=== PATIENT | male | born 1945 | race Hispanic/Latino ===

== ENCOUNTER 2018-06-28 06:19 | Day surgery (SDC) | payer MEDICARE ==
[2018-06-24 12:35] VITALS: BP 142/59
[2018-06-24 12:58] LABS: BASOPHILS % (AUTO) 0.8 % (0.0-5.0); EOSINOPHILS % (AUTO) 3.3 % (0.0-8.0); HEMATOCRIT 41.6 % (42-54); LYMPHOCYTES % (AUTO) 20.3 % (21.0-51.0); MEAN CORPUSCULAR HEMOGLOBIN 32.1 pg (27.0-33.0); MEAN CORPUSCULAR HGB CONC 33.9 g/dL (32.0-36.0); MEAN CORPUSCULAR VOLUME 94.6 fL (79-99); MONOCYTES % (AUTO) 9.1 % (3.0-13.0); NEUTROPHILS % (AUTO) 66.5 % (40.0-77.0); PLATELET COUNT (AUTO) 135 K/uL (130-400); RED BLOOD CELL COUNT(AUTO) 4.39 MIL/uL (4.50-6.20); WHITE BLOOD COUNT (AUTO) 7.7 K/uL (4.8-10.8)
[2018-06-24 13:01] LABS: APPEARANCE,URINE Clear (CLEAR); BILIRUBIN,URINE Negative (NEGATIVE); COLOR,URINE Yellow (YELLOW); GLUCOSE, URINE (UA) Negative (NEGATIVE); KETONES,URINE Negative (NEGATIVE); LEUKOCYTE ESTERASE ,URINE Negative (NEGATIVE); NITRATE,URINE Negative (NEGATIVE); OCCULT BLOOD,URINE Negative (NEGATIVE); PH,URINE 8.5 (5.0-8.0); PROTEIN,URINE Negative (NEGATIVE)
[2018-06-24 13:11] LABS: CREATININE 0.9 mg/dL (0.5-1.5)
[~2018-06-28] VITALS: Ht 172.7 cm; Wt 70.9 kg
[2018-06-28] VITALS (13 sets, daily range): BP systolic 114–138; BP diastolic 47–68
[~2018-06-28 06:19] MED LIST: CHOL100018 PO; FOLI1TAB15 PO; HYDR-85 PO; IRON PO; MVI PO; VITAMIN B12 PO; [UNRECOGNIZED DRUG - OTHER] PO
[2018-06-28] MEDS ORDERED: LACTATED RINGERS 1000ML 1,000 ML IV ONE (07:27)
[2018-06-28] MEDS ORDERED: PROPOFOL 10 MG/ML 20ML VIAL IV ONE (07:40)
[2018-06-28] MEDS ORDERED: ONDANSETRON HCL 4 MG/2 ML VIAL ONE (07:40)
[2018-06-28] MEDS ORDERED: FENTANYL CITRATE PF 50 MCG/1 ML 2ML VIAL ONE (07:40)
[2018-06-28] MEDS ORDERED: LIDOCAINE PF 2% 5ML ABBOJECT ONE (07:40)
[2018-06-28] MEDS ORDERED: DEXAMETHASONE SOD PHOSPHATE 10MG/ML 1ML VIAL ONE (07:40)
[2018-06-28] MEDS ORDERED: MIDAZOLAM HCL 1 MG/ML 2ML VIAL ONE (07:41)
[2018-06-28] MEDS ORDERED: ROPIVACAINE 0.5% 5MG/ML 30ML IJ ONE (08:16)
[2018-06-28] MEDS ORDERED: EPHEDRINE SULFATE 50 MG/ML AMPULE ONE (08:41)
[2018-06-28] MEDS ORDERED: MEPERIDINE-PF 25 MG/ML SYG ONE (10:19)
== END 2018-06-28 11:35 | disposition home or self-care (01) ==
LOC: DAH 06:19
PROVIDERS: ATTEND Surgery
DX: K40.90 Unilateral inguinal hernia, without obstruction or gangrene, not specified as recurrent (principal); D64.9 Anemia, unspecified; G89.29 Other chronic pain; M51.36 Other intervertebral disc degeneration, lumbar region; E78.5 Hyperlipidemia, unspecified; M19.90 Unspecified osteoarthritis, unspecified site; D69.6 Thrombocytopenia, unspecified; Z96.651 Presence of right artificial knee joint; Z90.49 Acquired absence of other specified parts of digestive tract; Z98.890 Other specified postprocedural states; Z79.899 Other long term (current) drug therapy; Z82.49 Family history of ischemic heart disease and other diseases of the circulatory system
CPT/HCPCS: 36415; 49505; 80048; 81003; 85025; 93005; A4450; A4452; C1729; C1781; J1100; J2001; J2175; J2250; J2405; J2704; J2795; J3490; J7030; J7120; J3010

== ENCOUNTER → 2021-02-27 | Outpatient (CLI) | payer MEDICARE | END | disposition home or self-care (01) | LOC: RAH 02-24 15:07 | PROVIDERS: ATTEND Family Medicine | DX: M21.752 Unequal limb length (acquired), left femur (principal) | CPT/HCPCS: 73700 ==

== ENCOUNTER 2023-10-27 07:41 | Day surgery (SDC) | payer OTHER, MEDICARE ==
[2023-10-26 12:17] LABS: BASOPHILS # (AUTO) 0.07 K/uL (0.00-0.20); BASOPHILS % (AUTO) 0.9 % (0.0-5.0); EOSINOPHILS # (AUTO) 0.19 K/uL (0.00-0.70); EOSINOPHILS % (AUTO) 2.3 % (0.0-8.0); HEMATOCRIT 41.7 % (42-54); IMMATURE GRANULOCYTE ABSOLUTE 0.06 K/uL (0-1); LYMPHOCYTES # (AUTO) 1.3 K/uL (1.0-4.8); LYMPHOCYTES % (AUTO) 15.6 % (21.0-51.0); MEAN CORPUSCULAR HEMOGLOBIN 31.9 pg (27.0-33.0); MEAN CORPUSCULAR HGB CONC 32.9 g/dL (32.0-36.0); MEAN CORPUSCULAR VOLUME 97.2 fL (79-99); MONOCYTES # (AUTO) 0.9 K/uL (0.1-1.0); NEUTROPHILS # (AUTO) 5.7 K/uL (1.8-7.7); NEUTROPHILS % (AUTO) 69.5 % (40.0-77.0); PLATELET COUNT (AUTO) 136 K/uL (130-400); RED BLOOD CELL COUNT(AUTO) 4.29 MIL/uL (4.50-6.20); RED CELL DISTRIBUTION WIDTH 12.8 % (11.0-15.5); WHITE BLOOD COUNT (AUTO) 8.2 K/uL (4.8-10.8)
[2023-10-26 12:48] LABS: CREATININE 0.9 mg/dL (0.5-1.5); POTASSIUM 4.1 mmol/L (3.5-5.1)
[2023-10-26 12:50] VITALS: BP 142/73; PULSE 99; RESP 17
[2023-10-27] VITALS (9 sets, daily range): BP systolic 108–129; BP diastolic 52–74; PULSE 54–110; RESP 16–18
[~2023-10-27] VITALS: Ht 174 cm; Wt 72.8 kg
[~2023-10-27 07:41] MED LIST changes: +CEPH250 PO; +HYDR-4339 PO; -HYDR-85 PO; +LIDOCAINE PF 100MG/5ML (2%) SYRINGE 5ML ONE; +PROPOFOL 10 MG/ML 20ML VIAL IV ONE
[2023-10-27] MEDS ORDERED: DRON400T7 PO (09:21)
[2023-10-27] MEDS ORDERED: APIX5TAB PO (09:21)
[2023-10-27] MEDS ORDERED: DILT240T13 PO (09:21)
== END 2023-10-27 13:10 | disposition home or self-care (01) ==
LOC: DAH 07:41
PROVIDERS: ATTEND Internal Medicine Cardiovascular Disease
DX: I48.19 Other persistent atrial fibrillation (principal); I49.1 Atrial premature depolarization; Z79.01 Long term (current) use of anticoagulants; Z79.899 Other long term (current) drug therapy; Z90.49 Acquired absence of other specified parts of digestive tract; Z98.890 Other specified postprocedural states; Z82.3 Family history of stroke
CPT/HCPCS: 80048; 85025; 36415; 92960; 93005 ×2; J2001; J2704; A4620; A4215; A4335; A4222; A4221; A4663; A4216; A4606; A4223 ×3; 99156; J3490

== ENCOUNTER 2023-11-24 07:50 | Day surgery (SDC) | payer OTHER, MEDICARE ==
[2023-11-22 12:40] LABS: BASOPHILS # (AUTO) 0.03 K/uL (0.00-0.20); BASOPHILS % (AUTO) 0.2 % (0.0-5.0); HEMATOCRIT 39.7 % (42-54); IMMATURE GRANULOCYTE ABSOLUTE 0.09 K/uL (0-1); LYMPHOCYTES # (AUTO) 1.2 K/uL (1.0-4.8); LYMPHOCYTES % (AUTO) 8.8 % (21.0-51.0); MEAN CORPUSCULAR HEMOGLOBIN 31.3 pg (27.0-33.0); MEAN CORPUSCULAR HGB CONC 33.2 g/dL (32.0-36.0); MEAN CORPUSCULAR VOLUME 94.1 fL (79-99); MONOCYTES # (AUTO) 1.1 K/uL (0.1-1.0); MONOCYTES % (AUTO) 8.5 % (3.0-13.0); NEUTROPHILS # (AUTO) 10.9 K/uL (1.8-7.7); NEUTROPHILS % (AUTO) 81.8 % (40.0-77.0); PLATELET COUNT (AUTO) 134 K/uL (130-400); RED BLOOD CELL COUNT(AUTO) 4.22 MIL/uL (4.50-6.20); WHITE BLOOD COUNT (AUTO) 13.3 K/uL (4.8-10.8)
[2023-11-22 12:41] VITALS: BP 148/86; PULSE 118; RESP 19
[2023-11-22 12:51] LABS: CREATININE 0.8 mg/dL (0.5-1.5); POTASSIUM 4.1 mmol/L (3.5-5.1)
[2023-11-24] VITALS (10 sets, daily range): BP systolic 119–145; BP diastolic 62–84; PULSE 54–104; RESP 10–19
[~2023-11-24] VITALS: Ht 172.7 cm; Wt 72.6 kg
[~2023-11-24 07:50] MED LIST changes: +APIX5TAB PO; -CEPH250 PO; -CHOL100018 PO; +CHOL100046 PO; +CYAN-106 PO; +DILT240T13 PO; -FOLI1TAB15 PO; -HYDR-4339 PO; -LIDOCAINE PF 100MG/5ML (2%) SYRINGE 5ML ONE; +MULT-1329 PO; -MVI PO; +PROP225C8 PO; -PROPOFOL 10 MG/ML 20ML VIAL IV ONE; -VITAMIN B12 PO; -[UNRECOGNIZED DRUG - OTHER] PO
[2023-11-24] MEDS: 0.9%NACL 1000ML 1,000 ML IV ONE (08:25)
[2023-11-24 08:30] LABS: BASOPHILS # (AUTO) 0.04 K/uL (0.00-0.20); BASOPHILS % (AUTO) 0.3 % (0.0-5.0); EOSINOPHILS # (AUTO) 0.01 K/uL (0.00-0.70); EOSINOPHILS % (AUTO) 0.1 % (0.0-8.0); IMMATURE GRANULOCYTE ABSOLUTE 0.09 K/uL (0-1); LYMPHOCYTES # (AUTO) 1.4 K/uL (1.0-4.8); LYMPHOCYTES % (AUTO) 11.4 % (21.0-51.0); MEAN CORPUSCULAR HEMOGLOBIN 31.5 pg (27.0-33.0); MEAN CORPUSCULAR HGB CONC 33.4 g/dL (32.0-36.0); MEAN CORPUSCULAR VOLUME 94.2 fL (79-99); MONOCYTES # (AUTO) 1.1 K/uL (0.1-1.0); MONOCYTES % (AUTO) 8.7 % (3.0-13.0); NEUTROPHILS # (AUTO) 9.8 K/uL (1.8-7.7); NEUTROPHILS % (AUTO) 78.8 % (40.0-77.0); PLATELET COUNT (AUTO) 147 K/uL (130-400); RED BLOOD CELL COUNT(AUTO) 4.67 MIL/uL (4.50-6.20); WHITE BLOOD COUNT (AUTO) 12.4 K/uL (4.8-10.8)
[2023-11-24] MEDS ORDERED: PROPOFOL 10 MG/ML 20ML VIAL IV ONE (09:56)
[2023-11-24] MEDS ORDERED: PHENYLEPHRINE HCL 10 MG/ML 1ML VIAL IV ONE (09:57)
== END 2023-11-24 11:00 | disposition home or self-care (01) ==
LOC: DAH 07:50
PROVIDERS: ATTEND Internal Medicine Cardiovascular Disease
DX: I48.19 Other persistent atrial fibrillation (principal); I49.1 Atrial premature depolarization; I10 Essential (primary) hypertension; M19.90 Unspecified osteoarthritis, unspecified site; Z90.49 Acquired absence of other specified parts of digestive tract; Z98.890 Other specified postprocedural states; Z82.3 Family history of stroke; Z79.01 Long term (current) use of anticoagulants
CPT/HCPCS: 80048; 85025 ×2; 36415 ×2; 92960; 93005 ×2; J7030; J2704; J2371; A4620; A4215; A4657; A4222; A4221; A4663; A4216; A4606; A4223 ×3; 99156; J3490

== ENCOUNTER 2024-01-20 05:56 | Observation (INO) | payer OTHER, MEDICARE ==
[2024-01-18 08:57] LABS: BASOPHILS # (AUTO) 0.04 K/uL (0.00-0.20); BASOPHILS % (AUTO) 0.4 % (0.0-5.0); EOSINOPHILS # (AUTO) 0.05 K/uL (0.00-0.70); EOSINOPHILS % (AUTO) 0.5 % (0.0-8.0); HEMATOCRIT 38.4 % (42-54); IMMATURE GRANULOCYTE ABSOLUTE 0.22 K/uL (0-1); LYMPHOCYTES # (AUTO) 1.1 K/uL (1.0-4.8); LYMPHOCYTES % (AUTO) 10.9 % (21.0-51.0); MEAN CORPUSCULAR HEMOGLOBIN 31.2 pg (27.0-33.0); MEAN CORPUSCULAR HGB CONC 33.6 g/dL (32.0-36.0); MONOCYTES # (AUTO) 1.2 K/uL (0.1-1.0); MONOCYTES % (AUTO) 11.4 % (3.0-13.0); NEUTROPHILS # (AUTO) 7.6 K/uL (1.8-7.7); NEUTROPHILS % (AUTO) 74.6 % (40.0-77.0); PLATELET COUNT (AUTO) 147 K/uL (130-400); RED BLOOD CELL COUNT(AUTO) 4.13 MIL/uL (4.50-6.20); RED CELL DISTRIBUTION WIDTH 15.2 % (11.0-15.5); WHITE BLOOD COUNT (AUTO) 10.2 K/uL (4.8-10.8)
[2024-01-18 09:01] VITALS: BP 112/71; PULSE 98; RESP 18
[2024-01-18 09:07] LABS: CREATININE 0.9 mg/dL (0.5-1.3); INR 1.06 (0.85-1.15); PROTHROMBIN TIME 12.4 SEC (9.6-11.6)
[2024-01-18 09:08] LABS: PARTIAL THROMBOPLASTIN TIME 30.6 SEC (26.3-35.5)
[2024-01-20] VITALS (30 sets, daily range): BP systolic 73–125; BP diastolic 45–84; PULSE 63–97; RESP 11–22; O2SAT 96–97
[~2024-01-20] VITALS: Ht 172.7 cm; Wt 69.2 kg
[~2024-01-20 05:56] MED LIST changes: +HYDR-4339 PO
[2024-01-20] MEDS ORDERED: PROPOFOL 10 MG/ML 20ML VIAL IV ONE (06:50)
[2024-01-20] MEDS ORDERED: MIDAZOLAM HCL 1 MG/ML 2ML VIAL ONE (06:50)
[2024-01-20] MEDS ORDERED: FENTANYL CITRATE PF 50 MCG/1 ML 2ML VIAL ONE ×2 (06:50→07:10)
[2024-01-20] MEDS: 0.9%NACL 1000ML 1,000 ML IV ONE (06:56)
[2024-01-20] MEDS ORDERED: PHENYLEPHRINE HCL 10 MG/ML 1ML VIAL IV ONE ×2 (07:10→07:22)
[2024-01-20] MEDS ORDERED: ROCURONIUM BROMIDE 10MG/1ML 5ML VL ONE (07:11)
[2024-01-20] MEDS ORDERED: ONDANSETRON 4MG INJ ONE (07:11)
[2024-01-20] MEDS ORDERED: LIDOCAINE HCL 400MG/20ML VIAL ONE (07:22)
[2024-01-20] MEDS ORDERED: HEPARIN 10,000 UNIT/10ML (1,000 UNIT/ML) VIAL ONE ×2 (07:23→09:03)
[2024-01-20] MEDS ORDERED: PROTAMINE SULFATE 10 MG/ML 5 ML VIAL ONE (11:16)
[2024-01-20] MEDS ORDERED: GLYCOPYRROLATE 0.2 MG/ML 5 ML VIAL ONE (11:41)
[2024-01-20] MEDS ORDERED: NEOSTIGMINE METHYLSULFATE 1MG/ML IV ONE (11:43)
[2024-01-20] MEDS ORDERED: PROPAFENONE HCL 225 MG PO SCH (12:30)
[2024-01-20] MEDS: ALBUMIN (HUMAN) 25% 100 ML IV ONE (13:45)
[2024-01-20] MEDS: EPHEDRINE SULFATE 50 MG/ML AMPULE ONE (13:45)
[2024-01-20] MEDS: SUCRALFATE 1 GM TABLET PO SCH (16:20)
[2024-01-20] MEDS: PANTOPRAZOLE 40 MG TAB DR PO ONE (16:21)
[2024-01-20] MEDS: HYDROCODONE/IBUPROFEN 7.5/200 MG TAB PO PRN (17:00)
[2024-01-20] MEDS: APIXABAN 5 MG TABLET PO SCH (18:49)
[2024-01-21 00:55] VITALS: BP 119/69; PULSE 73; RESP 20
[2024-01-21 04:55] VITALS: BP 116/73; PULSE 86; RESP 20
[2024-01-21 07:50] VITALS: BP 103/73; PULSE 90; RESP 18
[2024-01-21] MEDS: PANTOPRAZOLE 40 MG TAB DR PO SCH (08:08)
[2024-01-21] MEDS: DILTIAZEM 120MG SR CAP PO SCH (08:08)
[2024-01-21] MEDS: CYANOCOBALAMIN (VITAMIN B-12) 1,000 MCG TABLET PO SCH (08:08)
[2024-01-21] MEDS: LUTEIN PO SCH (08:09)
[2024-01-21] MEDS: (Cholecalciferol (Vitamin D3) (Vitamin D3) 25 MCG) PO SCH (08:09)
[2024-01-21] MEDS: LYCOPEN PO SCH (08:09)
[2024-01-21] MEDS: [UNRECOGNIZED DRUG - OTHER] PO SCH (08:09)
[2024-01-21] MEDS: MULTIVIT MIN PO SCH (08:09)
[2024-01-21 08:14] VITALS: O2SAT 97
[2024-01-21] MEDS ORDERED: PANT40TA55 PO ×2 (10:59)
[2024-01-21] MEDS ORDERED: SUCR1TAB2 PO ×2 (10:59)
== END 2024-01-21 14:14 | disposition home or self-care (01) ==
LOC: DAH 05:56 → DAHIP 05:57 → DAH 05:57 → 2AH 14:00
PROVIDERS: ADMIT Internal Medicine Cardiovascular Disease; ATTEND Internal Medicine Cardiovascular Disease
DX: I48.92 Unspecified atrial flutter (principal); I48.19 Other persistent atrial fibrillation; M19.90 Unspecified osteoarthritis, unspecified site; I10 Essential (primary) hypertension
CPT/HCPCS: 80048; 85025; 85610; 85730; 36415; 93005 ×3; 93656; 93657; 96365; 85347 ×8; C1894 ×3; C1732 ×2; C1893; A4215 ×2; C1731; A4649 ×2; G0378 ×26; J3010 ×2; J3490 ×4; J7030; J2720; J1644 ×3; J2704; J2405; J2710; J2371 ×2; P9046; A4223 ×3; A4222; A4221; A4663; A4216; A4606; C1730; J2250

== ENCOUNTER → 2024-01-27 | Outpatient (CLI) | payer OTHER, MEDICARE ==
[~2024-01-27] MED LIST changes: +PANT40TA55 PO; +SUCR1TAB2 PO
[2024-01-27 16:24] LABS: ALBUMIN 3.2 g/dL (3.5-5.0); BILIRUBIN,TOTAL 0.7 mg/dL (0.2-1.0); CREATININE 0.8 mg/dL (0.5-1.3); POTASSIUM 4.3 mmol/L (3.5-5.1); TOTAL PROTEIN, SERUM 6.6 g/dL (6.0-8.3)
== END | disposition home or self-care (01) ==
LOC: LAB 11:48
PROVIDERS: ATTEND Internal Medicine Cardiovascular Disease
DX: I48.92 Unspecified atrial flutter (principal)
CPT/HCPCS: 36415; 80053

== ENCOUNTER → 2024-02-16 | Outpatient (CLI) | payer OTHER, MEDICARE ==
[~2024-02-16] VITALS: Ht 172.7 cm; Wt 68.6 kg
[~2024-02-16] MED LIST changes: +METO-391 PO; +PROP325C5 PO
[2024-02-16 10:34] VITALS: BP 108/74; PULSE 94; RESP 17
[2024-02-16 10:42] LABS: BASOPHILS # (AUTO) 0.08 K/uL (0.00-0.20); BASOPHILS % (AUTO) 0.8 % (0.0-5.0); EOSINOPHILS # (AUTO) 0.13 K/uL (0.00-0.70); EOSINOPHILS % (AUTO) 1.3 % (0.0-8.0); HEMATOCRIT 36.7 % (42-54); IMMATURE GRANULOCYTE ABSOLUTE 0.18 K/uL (0-1); LYMPHOCYTES # (AUTO) 1.5 K/uL (1.0-4.8); LYMPHOCYTES % (AUTO) 14.9 % (21.0-51.0); MEAN CORPUSCULAR HGB CONC 32.2 g/dL (32.0-36.0); MEAN CORPUSCULAR VOLUME 96.3 fL (79-99); MONOCYTES # (AUTO) 1.1 K/uL (0.1-1.0); MONOCYTES % (AUTO) 11.7 % (3.0-13.0); NEUTROPHILS # (AUTO) 6.8 K/uL (1.8-7.7); NEUTROPHILS % (AUTO) 69.5 % (40.0-77.0); PLATELET COUNT (AUTO) 171 K/uL (130-400); RED BLOOD CELL COUNT(AUTO) 3.81 MIL/uL (4.50-6.20); RED CELL DISTRIBUTION WIDTH 14.8 % (11.0-15.5); WHITE BLOOD COUNT (AUTO) 9.8 K/uL (4.8-10.8)
[2024-02-16 10:50] LABS: CREATININE 0.9 mg/dL (0.5-1.3); POTASSIUM 4.1 mmol/L (3.5-5.1)
== END | disposition home or self-care (01) ==
LOC: DAH 10:00 → EDSTATUS 02-18 08:00
PROVIDERS: ATTEND Internal Medicine Cardiovascular Disease
DX: Z01.812 Encounter for preprocedural laboratory examination (principal); I48.4 Atypical atrial flutter
CPT/HCPCS: 36415; 80048; 85025

== ENCOUNTER → 2024-03-10 | Outpatient (CLI) | payer OTHER, MEDICARE ==
[~2024-03-10] MED LIST changes: -DILT240T13 PO; -PANT40TA55 PO; -PROP225C8 PO; +PROP325C17 PO; -PROP325C5 PO; -SUCR1TAB2 PO
== END | disposition home or self-care (01) ==
LOC: SHCH 08:29
PROVIDERS: ATTEND Internal Medicine Cardiovascular Disease
DX: R60.9 Edema, unspecified (principal)
CPT/HCPCS: 93970

== ENCOUNTER → 2024-03-16 | Outpatient (CLI) | payer OTHER, MEDICARE | END | disposition home or self-care (01) | LOC: SHCH 12:41 | PROVIDERS: ATTEND Internal Medicine Cardiovascular Disease | DX: I08.8 Other rheumatic multiple valve diseases (principal); I48.92 Unspecified atrial flutter; I31.39 Other pericardial effusion (noninflammatory) | CPT/HCPCS: 93306 ==

== ENCOUNTER 2024-03-31 07:22 | Day surgery (SDC) | payer OTHER, MEDICARE ==
[2024-03-29 11:30] LABS: BASOPHILS # (AUTO) 0.05 K/uL (0.00-0.20); BASOPHILS % (AUTO) 0.6 % (0.0-5.0); EOSINOPHILS # (AUTO) 0.31 K/uL (0.00-0.70); EOSINOPHILS % (AUTO) 3.4 % (0.0-8.0); HEMATOCRIT 41.5 % (42-54); IMMATURE GRANULOCYTE ABSOLUTE 0.11 K/uL (0-1); LYMPHOCYTES # (AUTO) 1.8 K/uL (1.0-4.8); LYMPHOCYTES % (AUTO) 19.8 % (21.0-51.0); MEAN CORPUSCULAR HEMOGLOBIN 31.3 pg (27.0-33.0); MEAN CORPUSCULAR HGB CONC 32.8 g/dL (32.0-36.0); MEAN CORPUSCULAR VOLUME 95.4 fL (79-99); MONOCYTES % (AUTO) 11.4 % (3.0-13.0); NEUTROPHILS # (AUTO) 5.8 K/uL (1.8-7.7); NEUTROPHILS % (AUTO) 63.6 % (40.0-77.0); PLATELET COUNT (AUTO) 147 K/uL (130-400); RED BLOOD CELL COUNT(AUTO) 4.35 MIL/uL (4.50-6.20); RED CELL DISTRIBUTION WIDTH 13.4 % (11.0-15.5); WHITE BLOOD COUNT (AUTO) 9.1 K/uL (4.8-10.8)
[2024-03-29 11:43] LABS: CREATININE 0.9 mg/dL (0.5-1.3); POTASSIUM 4.1 mmol/L (3.5-5.1)
[2024-03-29 12:35] VITALS: BP 113/70; PULSE 80; RESP 16
[~2024-03-31] VITALS: Ht 172.7 cm; Wt 63.2 kg
[2024-03-31] VITALS (10 sets, daily range): BP systolic 90–115; BP diastolic 50–67; PULSE 52–90; RESP 14–17
[2024-03-31] MEDS: 0.9%NACL 1000ML 1,000 ML IV ONE (08:23)
[2024-03-31] MEDS ORDERED: PROPOFOL 10 MG/ML 20ML VIAL IV ONE (09:06)
[2024-03-31] MEDS ORDERED: PHENYLEPHRINE HCL 10 MG/ML 1ML VIAL IV ONE (09:08)
[2024-03-31] MEDS ORDERED: EPINEPHRINE PF 1MG (1:1,000) 1 MG/ML AMP ONE (09:09)
== END 2024-03-31 10:10 | disposition home or self-care (01) ==
LOC: DAH 07:22
PROVIDERS: ATTEND Internal Medicine Cardiovascular Disease
DX: I48.4 Atypical atrial flutter (principal); R35.0 Frequency of micturition; I35.1 Nonrheumatic aortic (valve) insufficiency; M21.862 Other specified acquired deformities of left lower leg; Z79.899 Other long term (current) drug therapy; Z90.49 Acquired absence of other specified parts of digestive tract; Z96.653 Presence of artificial knee joint, bilateral; Z98.890 Other specified postprocedural states
CPT/HCPCS: 80048; 85025; 36415; 93005 ×2; 92960; A4223 ×3; J7030; J0171; J2704; J2371; A4620; A4215; A4657; A4222; A4221; A4663; A4216; A4606; J3490

== ENCOUNTER → 2024-08-25 | Outpatient (CLI) | payer OTHER, MEDICARE ==
--- NOTE | 2024-08-25 11:10 | HMCIMG ---
CHEST 2VWS HISTORY: Abnormal weight loss COMPARISON: None FINDINGS: Frontal and lateral projections of the chest were obtained. There are mild bilateral pulmonary infiltrates suggestive of mild pulmonary vascular congestion with possible superimposed pneumonitis. The heart is borderline enlarged. No evidence of aortic calcification is seen. Degenerative changes are seen of the thoracolumbar spine. IMPRESSION: 1. There are mild bilateral pulmonary infiltrates suggestive of mild pulmonary vascular congestion with possible superimposed pneumonitis.
--- NOTE | 2024-08-25 14:04 | HMCIMG ---
NM GASTRIC EMPTYING STUDY REASON: NAUSEA WITH VOMITTING. COMPARISON: None TECHNIQUE: Nuclear gastric emptying study was performed with 1.5 mCi of technetium sulfa colloid with scrambled eggs through oral route. FINDINGS: T half of gastric emptying is 67 minutes. IMPRESSION: Normal gastric emptying with T half of 67 minutes.
== END | disposition home or self-care (01) ==
LOC: RAH 10:00
PROVIDERS: ATTEND Physician Assistant Medical
DX: J98.4 Other disorders of lung (principal); R11.2 Nausea with vomiting, unspecified; R63.4 Abnormal weight loss; M47.815 Spondylosis without myelopathy or radiculopathy, thoracolumbar region
CPT/HCPCS: 78264; 71046; A9541

== ENCOUNTER → 2024-09-06 | Outpatient (CLI) | payer OTHER, MEDICARE ==
[~2024-09-06] MED LIST changes: +IOHEXOL-350 75 ML VIAL IV ONE
--- NOTE | 2024-09-06 11:10 | HMCIMG ---
CT ABDOMEN/PELVIS W/WO CONTRAS HISTORY: Abnormal weight loss COMPARISON: None TECHNIQUE: Multiple sequential axial images of the abdomen and pelvis were obtained from the dome of the diaphragm through symphysis pubis. Patient was given 75 cc of Omnipaque through intravenous route. Oral contrast was given. FINDINGS: Tiny left pleural effusion is seen. There is no evidence of parenchymal disease or pulmonary nodule of the visualized lower lungs. Degenerative changes of the thoracolumbar spine are present. The heart is borderline enlarged. Endplate degenerative changes with disc space narrowing are seen at L3-4, L4-5 and L5-S1 levels. Superior endplate compression fracture is seen of L2 with 50% loss of height. Then liver measures 16 cm no bowel obstruction is seen. The liver, spleen, adrenal glands and pancreas are unremarkable. There is no evidence of hydronephrosis bilaterally. No evidence of renal stone is seen. Fecal material is seen in the colon. There is mild diverticulosis. There are normal size retroperitoneal and mesenteric lymph nodes. No ascites is seen. Atherosclerotic changes are present. Pelvic sidewalls are symmetric bilaterally. Bladder is well distended without wall thickening. IMPRESSION: 1. No bowel obstruction. Fecal material in the colon. No ascites. Mild diverticulosis. No acute findings. CT was performed with one or more following dose reduction techniques: automated exposure control, adjustment of the mA and kv according to patient's size, or use of a iterative reconstruction technique.
== END | disposition home or self-care (01) ==
LOC: RAH 09:54
PROVIDERS: ATTEND Internal Medicine Gastroenterology
DX: K57.30 Diverticulosis of large intestine without perforation or abscess without bleeding (principal); R63.4 Abnormal weight loss; M47.815 Spondylosis without myelopathy or radiculopathy, thoracolumbar region; N25.89 Other disorders resulting from impaired renal tubular function
CPT/HCPCS: 74178; Q9967

== ENCOUNTER → 2024-10-16 | Outpatient (CLI) | payer OTHER, MEDICARE ==
[~2024-10-16] MED LIST changes: -IOHEXOL-350 75 ML VIAL IV ONE
[2024-10-16 12:31] LABS: CREATININE 0.8 mg/dL (0.5-1.3); POTASSIUM 4.3 mmol/L (3.5-5.1)
== END | disposition home or self-care (01) ==
LOC: LAB 11:03
PROVIDERS: ATTEND Internal Medicine Cardiovascular Disease
DX: I71.40 Abdominal aortic aneurysm, without rupture, unspecified (principal)
CPT/HCPCS: 36415; 80048

== ENCOUNTER → 2024-10-30 | Outpatient (CLI) | payer OTHER, MEDICARE ==
[~2024-10-30] MED LIST changes: +IOHEXOL 350 MG/ML 100ML INFUS..BTL IV ONE
--- NOTE | 2024-10-30 10:36 | HMCIMG ---
CT ANGIO CHEST HISTORY: Abdominal aortic aneurysm COMPARISON: 09/06/2024 TECHNIQUE: CT angiography of the chest was performed. The study was performed using angiographic technique with maximum intensity projection reconstruction images. Patient was given 75 cc of Omnipaque through intravenous route. FINDINGS: Pulmonary vasculatures are not well opacified limiting evaluation. No CT evidence of filling defect is seen to suggest pulmonary embolus. No CT evidence of aortic dissection is seen. Ascending thoracic aorta measures 4 x 3.8 cm dilated consistent with aneurysm. Coronary arterial calcifications are seen. There are interstitial fibrosis. Minimal left lower lung pulmonary infiltrates is seen. No CT evidence of pleural effusion or pericardial effusion is seen. The heart is enlarged. No evidence of adrenal mass is seen. Degenerative changes of the spine are noted. IMPRESSION: 1. No CT evidence of acute pulmonary embolus for aortic dissection is seen. Ascending thoracic aorta measures 4 x 3.8 cm dilated consistent with aneurysm. Coronary arterial calcifications are seen. There are interstitial fibrosis. Minimal left lower lung pulmonary infiltrates is seen. CT was performed with one or more following dose reduction techniques: automated exposure control, adjustment of the mA and kv according to patient's size, or use of a iterative reconstruction technique.
== END | disposition home or self-care (01) ==
LOC: RAH 09:09
PROVIDERS: ATTEND Internal Medicine Cardiovascular Disease
DX: J84.10 Pulmonary fibrosis, unspecified (principal); I71.40 Abdominal aortic aneurysm, without rupture, unspecified; I25.10 Atherosclerotic heart disease of native coronary artery without angina pectoris; I51.7 Cardiomegaly
CPT/HCPCS: 71275; Q9967

== ENCOUNTER 2025-01-14 12:46 | Observation (INO) | payer OTHER, MEDICARE ==
[~2025-01-14] VITALS: Ht 165.1 cm; Wt 61.7 kg
[~2025-01-14 12:46] MED LIST changes: -IOHEXOL 350 MG/ML 100ML INFUS..BTL IV ONE
--- NOTE | 2025-01-14 13:49 | ERN ---
ED Note History of Present Illness Stated Complaint: LEFT SHOULDER PAIN Chief Complaint: Shortness of Breath Time Seen by MD: 13:44 Dictation: PATIENT IS AN 79-YEAR-OLD MALE COMING IN WITH HIS WITH COMPLAINTS OF HAVING GENERALIZED BODY WEAKNESS AND SHORTNESS A BREATH ON EXERTION FOR THE LAST 7-10 DAYS. NO FEVER NO CHILLS NO NAUSEA VOMITING. 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 STATES ON WEDNESDAY HE WENT TO LOCAL URGENT CARE AND WAS TOLD HE WAS IN CONGESTIVE HEART FAILURE WAS GIVEN SOME LASIX THEN MADE HIM FEEL BETTER AT THE CLINIC, THEN LASIX FOR FIVE DAYS. SAW HIS PRIMARY CARE DOCTOR ON WEDNESDAY WHO TOLD HIM EVERYTHING LOOKED FINE AND TO CONTINUE THE LASIX. HE IS HERE BECAUSE HE FEELS EXACTLY THE SAME HE DID WHEN HE WENT TO URGENT CARE ON WEDNESDAY. PATIENT HAS A EDEMA TO BILATERAL LOWER EXTREMITIES GREATER ON THE LEFT. Allergies: Coded Allergies: No Known Drug Allergies (Unverified Allergy, Unknown, 02/16/24) Home Meds Active Scripts Oseltamivir Phosphate (Tamiflu) 75 Mg Cap, 1 CAP PO BID for 5 Days, #10 CAP 0 Refills Prov:PAMELLA WELSH 01/15/25 Levofloxacin (Levaquin 750Mg Tabs) 750 Mg Tablet, 1 TAB PO DAILY for 5 Days, #5 TAB 0 Refills Prov:PAMELLA WELSH 01/15/25 Reported Medications Amiodarone HCl (Amiodarone HCl) 200 Mg Tablet, 1 TAB PO BID 01/14/25 Levocetirizine Dihydrochloride (Levocetirizine Dihydrochloride) 5 Mg Tablet, 1 TAB PO DAILY 01/14/25 Rivaroxaban (Xarelto) 20 Mg Tablet, 1 TAB PO DAILY 01/14/25 Furosemide (Furosemide) 20 Mg Tablet, 1 TAB PO DAILY 01/14/25 Propafenone HCl (Propafenone HCl) 325 Mg Cap.er.12h, 325 MG PO BID, CAPSULE.DR 02/16/24 Metoprolol Succinate (Metoprolol Succinate) 50 Mg Tab.er.24h, 50 MG PO AM, TAB 02/16/24 Hydrocodone/Ibuprofen (Hydrocodone-Ibuprofen 7.5-200) 7.5 Mg-200 Mg Tablet, 1 EACH PO Q6HPRN PRN for PAIN, TAB 01/18/24 Multivit-Min/FA/Lycopen/Lutein (Adults 50+ Multivitamin Tablet) 0.4 Mg-300 Mcg- 250 Mcg Tablet, 1 EACH PO DAILY, TAB 11/22/23 [Iron] No Conflict Check, 65 MG PO DAILY 11/22/23 Cholecalciferol (Vitamin D3) (Vitamin D3) 25 Mcg (1000 Unit) Capsule, 25 MCG PO DAILY, CAP 11/22/23 Cyanocobalamin (Vitamin B-12) (Vitamin B12) 1,000 Mcg Tablet, 1000 MCG PO DAILY, TAB 11/22/23 Apixaban (Eliquis) 5 Mg Tablet, 5 MG PO BID, TAB 10/27/23 Past Medical History Past Medical History: CHF, Heart Disease, Hypertension Additional Past Medical Hx: VERTIGO Surgical History: Appendectomy, Other Surgical History Other: BILAT KNEE REPLACEMENT, BACK SX, ABD HERNIA SX Social History: Lives with family RN Note Reviewed/Agreed w/PFSH: Yes Review of System Dictation CONSTITUTIONAL: NEGATIVE EXCEPT FOR HPI WEAKNESS HEAD/FACE: NEGATIVE EXCEPT FOR HPI EENT: NEGATIVE EXCEPT FOR HPI RESPIRATORY: NEGATIVE EXCEPT FOR HPI SOB ON EXERTION/EDEMA LOWER EXTREMITIES GREATER ON THE LEFT GASTROINTESTINAL/ABDOMINAL: NEGATIVE EXCEPT FOR HPI GENITOURINARY: NEGATIVE EXCEPT FOR HPI MUSCULOSKELETAL: NEGATIVE EXCEPT FOR HPI INTEGUMENTARY: NEGATIVE EXCEPT FOR HPI NEUROLOGICAL/PSYCH: NEGATIVE EXCEPT FOR HPI HEMATOLOGIC/LYMPHATIC: NEGATIVE EXCEPT FOR HPI ALL SYSTEMS NEGATIVE, EXCEPT NOTED ABOVE. 13 POINT REVIEW OF SYSTEMS ASSESSED AND ALL NEGATIVE EXCEPT FOR ABOVE. Initial Vital Sign VS Vital Signs Date Time Temp Pulse Resp B/P (MAP) Pulse Ox O2 Delivery O2 Flow Rate FiO2 01/14/25 13:28 97.3 52 18 141/66 99 Room Air 0 01/14/25 17:40 21 Physical Exam Dictation VITAL SIGNS REVIEWED GENERAL APPEARANCE: ALERT, ORIENTED X 3, PATIENT APPEARS FRAIL AND DEBILITATED. HEAD AND FACE: NON-TRAUMATIC. EYES: PERRL, PINK CONJUNCTIVAS, EYELID NO TRAUMA, ANTERIOR CHAMBER WITH ARCUS SENILIS. EARS: PINNAS INTACT AND NO SIGNS OF TRAUMA OR ERYTHEMA EAR CANALS CLEAR AND NO DISCHARGE TM NO ERYTHEMA NOSE: NO DISCHARGE, NO BLEEDING. OROPHARYNX: MOUTH NORMAL, TONGUE PINK, PHARYNX CLEAR,NO ERYTHEMA, TONSILS NO EXUDATES, NO ABSCESSES NOTED, MUCOUS MEMBRANE MOIST NECK: SUPPLE, NON-TENDER, NO THYROMEGALY, NO MASSES, NO JVD, NO BRUITS BREAST:DEFERRED CHEST:NO TENDERNESS, NO CREPITUS, NO PARADOXICAL MOVEMENT, NO RETRACTIONS LUNGS:CLEAR, WELL-VENTILATED, SYMMETRIC, NO RALES, NO WHEEZING, NO RHONCHI, NO STRIDOR, GOOD BREATH SOUNDS BILATERALLY HEART: REGU 1+ EDEMA RIGHT LEG, 2+ EDEMA LEFT LEG PERIPHERAL EDEMA, ABDOMEN: SOFT, POSITIVE BOWEL SOUNDS, NONDISTENDED, NO GUARDING, NONTENDER, NO REBOUND, NO MASSES NO HEPATOMEGALY, NO SPLENOMEGALY, NO VIVEROS'S SIGN, NO HERNIAS. RECTAL: DEFERRED GENITAL: DEFERRED NEUROLOGICAL: NORMAL SPEECH, MOTOR FUNCTION INTACT, SENSORY FUNCTION INTACT MUSCULOSKELETAL: NECK NONTENDER, FULL RANGE OF MOTION, BACK NONTENDER, FULL RANGE OF MOTION, EXTREMITIES: NONTENDER, FULL RANGE OF MOTION SKIN: COLOR PINK, DRY, NO TURGOR, NO RASH, NO LACERATIONS, NO ABRASIONS, NO CONTUSIONS. LYMPHATIC: DEFERRED Results (Laboratory/Radiology) Laboratory/Radiology Laboratory Tests Test 01/14/25 13:58 01/14/25 15:15 01/14/25 17:27 01/14/25 17:30 White Blood Count 7.7 K/uL (4.8-10.8) Red Blood Count 3.62 MIL/uL (4.50-6.20) L Hemoglobin 11.6 g/dL (14.0-18.0) L Hematocrit 35.1 % (42-54) L Mean Corpuscular Volume 97.0 fL (79-99) Mean Corpuscular Hemoglobin 32.0 pg (27.0-33.0) Mean Corpuscular Hemoglobin Concent 33.0 g/dL (32.0-36.0) Red Cell Distribution Width 12.4 % (11.0-15.5) Platelet Count 90 K/uL (130-400) L Mean Platelet Volume 12.7 fL (7.5-10.5) H Immature Granulocyte % (Auto) 0.5 % (0-1) Neutrophils (%) (Auto) 73.7 % (40.0-77.0) Lymphocytes (%) (Auto) 13.9 % (21.0-51.0) L Monocytes (%) (Auto) 9.6 % (3.0-13.0) Eosinophils (%) (Auto) 1.8 % (0.0-8.0) Basophils (%) (Auto) 0.5 % (0.0-5.0) Neutrophils # (Auto) 5.7 K/uL (1.8-7.7) Lymphocytes # (Auto) 1.1 K/uL (1.0-4.8) Monocytes # (Auto) 0.7 K/uL (0.1-1.0) Eosinophils # (Auto) 0.14 K/uL (0.00-0.70) Basophils # (Auto) 0.04 K/uL (0.00-0.20) Absolute Immature Granulocyte (auto 0.04 K/uL (0-1) Nucleated Red Blood Cells 0.0 % (0.0-0.19) Sodium Level 135 mmol/L (136-145) L Potassium Level 4.3 mmol/L (3.5-5.1) Chloride Level 100 mmol/L (101-111) L Carbon Dioxide Level 30 mmol/L (21-32) Blood Urea Nitrogen 23 mg/dL (7-18) H Creatinine 1.2 mg/dL (0.5-1.3) Glomerular Filtration Rate Calc 61 mL/min (>90) Random Glucose 100 mg/dL (70-105) Total Calcium 8.8 mg/dL (8.5-10.1) Total Creatine Kinase 89 U/L (21-232) Troponin I High Sensitivity 29 ng/L (4-75) B-Type Natriuretic Peptide 279 pg/mL (0-100) H SARS-CoV-2 Antigen (Rapid) PRESUMPTIVE NEGATIVE Blood Gas Specimen Type Arterial Arterial Blood pH 7.460 (7.350-7.450) Arterial Blood Partial Pressure CO2 31 mmHg (35-48) L Arterial Blood Partial Pressure O2 69.0 mmHg (83.0-108.0) L Arterial Blood HCO3 21.5 mmol/L (21.0-28.0) Arterial Blood Oxygen Saturation 94.9 % (94.0-98.0) Arterial Blood Base Excess -1.2 mmol/L (-2.0-3.0) Blood Gas Temperature 37.0 CELSIUS (35.5-37.0) Blood Gas Vent Mode RA (ROOM AIR) FiO2 21.0 % Blood Gas Specimen Comment DR.WORTH PRAVEEN Urine Color LIGHT-YELLOW (YELLOW) Urine Appearance CLEAR (CLEAR) Urine pH 5.5 (5.0-8.0) Urine Specific Elizabeth 1.012 (1.001-1.031) Urine Protein NEGATIVE mg/dL (NEGATIVE) Urine Glucose (UA) NEGATIVE mg/dL (NEGATIVE) Urine Ketones NEGATIVE mg/dL (NEGATIVE) Urine Occult Blood NEGATIVE (NEGATIVE) Urine Nitrate NEGATIVE (NEGATIVE) Urine Bilirubin NEGATIVE mg/dL (NEGATIVE) Urine Urobilinogen 0.2 mg/dL (0.2-1.0) Urine Leukocyte Esterase NEGATIVE Jovan/uL Test 01/14/25 23:10 01/15/25 02:33 01/15/25 06:50 01/15/25 06:59 Whole Blood Glucose 85 MG/DL (70-110) D-Dimer Quantitative (PE/DVT) 914 ng/mL (0-500) *H Hemoglobin A1c 5.0 % (4.0-6.0) Estimated Average Glucose (eAG) 97 mg/dL (70-126) Troponin I High Sensitivity 36 ng/L (4-75) Influenza Type A Antigen Negative For Type A Influenza Type B Antigen Positive For Type B White Blood Count 5.9 K/uL (4.8-10.8) Red Blood Count 3.17 MIL/uL (4.50-6.20) L Hemoglobin 10.0 g/dL (14.0-18.0) L Hematocrit 29.3 % (42-54) L Mean Corpuscular Volume 92.4 fL (79-99) Mean Corpuscular Hemoglobin 31.5 pg (27.0-33.0) Mean Corpuscular Hemoglobin Concent 34.1 g/dL (32.0-36.0) Red Cell Distribution Width 12.2 % (11.0-15.5) Platelet Count 77 K/uL (130-400) L Mean Platelet Volume 13.1 fL (7.5-10.5) H Nucleated Red Blood Cells 0.0 % (0.0-0.19) Sodium Level 137 mmol/L (136-145) Potassium Level 3.2 mmol/L (3.5-5.1) L Chloride Level 103 mmol/L (101-111) Carbon Dioxide Level 28 mmol/L (21-32) Blood Urea Nitrogen 19 mg/dL (7-18) H Creatinine 1.1 mg/dL (0.5-1.3) Glomerular Filtration Rate Calc 67 mL/min (>90) Random Glucose 82 mg/dL (70-105) Total Calcium 8.8 mg/dL (8.5-10.1) Phosphorus Level 4.0 mg/dL (2.5-4.9) Magnesium Level 1.90 mg/dL (1.80-2.40) Thyroid Stimulating Hormone (TSH) 8.42 uIU/mL (0.36-3.74) H Test 01/15/25 12:36 Whole Blood Glucose 95 MG/DL (70-110) Labs Reviewed?: Yes EKG Comment: EKG SINUS BRADYCARDIA/HEART RATE 50/AXIS NORMAL/LEFT ANTERIOR FASCICULAR BLOCK ED Course ED Course Orders Procedure Category Date Status Time Vital Signs Per CPOE 01/14/25 Transmitted Routine 13:36 B-Type Natriuretic LAB 01/14/25 Complete Peptide 13:36 Chest 1vw RAD 01/14/25 Resulted 13:36 12 Lead Ekg Tracing- EKG 01/14/25 Resulted Technical 13:36 Oxygen By Nc/Pulse Ox CPOE 01/14/25 Transmitted 13:36 Maintain Iv CPOE 01/14/25 Transmitted 13:36 Iv Insertion CPOE 01/14/25 Transmitted 13:36 Cardiac Monitoring CPOE 01/14/25 Transmitted 13:36 Pulse Oximetry With CPOE 01/14/25 Transmitted Vs And Prn 13:36 Cbc With Differential LAB 01/14/25 Complete 13:36 Activity: Br W/Brp CPOE 01/14/25 Transmitted With Assist 13:36 Creatine Kinase, Total LAB 01/14/25 Complete 13:36 Troponin I High LAB 01/14/25 Complete Sensitivity 13:36 Basic Metabolic Panel LAB 01/14/25 Complete 13:36 Covid19 (Sars Antigen LAB 01/14/25 Complete Rapid) 13:45 Urinalysis Profile LAB 01/14/25 Complete 13:45 Arterial Blood Gas RT 01/14/25 Transmitted 17:06 Albuterol 0.083% PHA 01/14/25 Complete 2.5mg/3ml (Proventil 17:30 Arterial Blood Gas LAB 01/14/25 Complete 17:27 Oxygen By Nc/Pulse Ox CPOE 01/14/25 Transmitted 18:04 Furosemide 40mg Vial PHA 01/14/25 Complete (Lasix 40mg Vial) 18:30 Admit Orders ADM 01/14/25 Transmitted 18:28 Edm Admit Bridge Order ADM 01/14/25 Transmitted 18:31 Vital Signs Every 4 CPOE 01/14/25 Transmitted Hours 19:54 Daily Weights CPOE 01/14/25 Transmitted 19:54 I&O Q Shift CPOE 01/14/25 Transmitted 19:54 Heart Healthy Diet DIET 01/15/25 Complete Breakfast O2 Order RT 01/14/25 Transmitted 19:54 Albuterol 0.083% PHA 01/15/25 Complete 2.5mg/3ml (Proventil 00:00 Ipratropium 0.5 PHA 01/15/25 Complete Mg/2.5 Ml Inh 00:00 Cbc Without LAB 01/15/25 Complete Differential 04:00 Basic Metabolic Panel LAB 01/15/25 Complete 04:00 Magnesium LAB 01/15/25 Complete 04:00 Phosphorus LAB 01/15/25 Complete 04:00 Thyroid Stimulating LAB 01/15/25 Complete Hormone 04:00 Acetaminophen 325 Tab PHA 01/14/25 Complete (Tylenol 325mg Tab 20:00 Acetaminophen 650mg PHA 01/14/25 Complete Supp (Tylenol 650mg 20:00 Lactulose 20 Gm/30 Ml PHA 01/14/25 Complete Udcup (Constulose 20:00 Docusate Sodium 100 PHA 01/14/25 Complete Mg Cap (Colace 100mg 20:00 Temazepam 15 Mg Cap PHA 01/14/25 Complete (Restoril 15 Mg Cap) 20:00 Ondansetron 4mg Inj PHA 01/14/25 Complete (Zofran 4mg Inj) 20:00 Labetalol 20mg Syg PHA 01/14/25 Complete (Trandate 20mg Syg) 20:00 Telemetry Monitoring CPOE 01/14/25 Transmitted 19:54 Initiate DEV 01/14/25 Complete Hyperglycemia Protoco 19:54 Insulin Regular, PHA 01/14/25 Complete Human 3ml (Humulin R 21:00 Shoulder Comp 2+Vws Lt RAD 01/14/25 Resulted 20:31 Influenza Type A & B, LAB 01/15/25 Complete Rapid 01:52 Ct Chest W/O Contrast CT 01/15/25 Resulted 01:55 D-Dimer LAB 01/15/25 Complete 02:00 Hemoglobin A1c LAB 01/15/25 Complete 02:00 Troponin I High LAB 01/15/25 Complete Sensitivity 02:00 12 Lead Ekg Tracing- EKG 01/15/25 Resulted Technical 07:00 Amiodarone 200mg Tab PHA 01/15/25 Complete (Pacerone 200mg) 09:00 Cyanocobalamin PHA 01/15/25 Complete (Vitamin B-12) 09:00 Furosemide 20 Mg PHA 01/15/25 Complete Tablet (Lasix 20mg 09:00 Hydrocodone/Ibu PHA 01/15/25 Complete 7.5/200mg (Vicoprofen 02:30 Metoprolol Succinate PHA 01/15/25 Complete (Toprol Xl) 09:00 Rivaroxaban (Xarelto) PHA 01/15/25 Complete 09:00 Home Medication (Home PHA 01/15/25 Complete Medication) 09:00 Home Medication (Home PHA 01/15/25 Complete Medication) 09:00 Home Medication (Home PHA 01/15/25 Complete Medication) 09:00 Famotidine 20mg Vial PHA 01/15/25 Complete (Pepcid 20mg Vial) 09:00 Budesonide 0.5 Mg/2 PHA 01/15/25 Complete Ml Inh (Pulmicort 0. 06:00 Us Venous Doppler US 01/15/25 Resulted Bilateral 03:37 Echo 2-D Complete ECHO 01/15/25 Resulted 19:54 Ceftriaxone 2gm Vial PHA 01/15/25 Complete (Rocephin 2gm Inj) 10:30 Doxycycline Hyclate PHA 01/15/25 Complete (Doxycycline Hyclate 21:00 Oseltamivir Phosphate PHA 01/15/25 Complete (Tamiflu) 21:00 *General Dc DS 01/15/25 Transmitted Instructions 15:22 Current Medications Medications (Trade) Dose Ordered Sig/Angélica Route PRN Reason Start Time Stop Time Status Last Admin Dose Admin Albuterol Sulfate (Proventil 0.083% 2.5mg/3ml) 2.5 mg ONCE ONCE IH 01/14/25 17:30 01/14/25 17:31 DC 01/14/25 17:21 Vital Signs Date Time Temp Pulse Resp B/P (MAP) Pulse Ox O2 Delivery O2 Flow Rate FiO2 01/15/25 18:00 97.5 57 17 113/54 97 Room Air 0.0 01/15/25 12:00 54 16 114/57 97 Room Air 0.0 01/15/25 11:50 52 18 01/15/25 08:00 97 Room Air* 0 01/15/25 07:14 47 18 N/A Room Air 21 01/15/25 07:13 47 18 01/15/25 07:00 99.0 48 18 130/56 96 Room Air 0.0 01/15/25 06:29 98.1 48 14 121/52 98 Room Air* 0 01/15/25 00:05 98.1 47 14 146/57 99 Room Air* 0 01/14/25 23:51 49 18 01/14/25 20:47 98.2 48 20 98/56 99 Room Air* 0 21 01/14/25 20:47 96 18 N/Cannula Low lpm 2.0 28 01/14/25 17:40 98.2 47 20 128/53 96 Room Air* 0 01/14/25 17:25 47 20 01/14/25 13:28 97.3 52 18 141/66 99 Room Air 0 1655/patient placed in room 18 from waiting room. PATIENT CURRENTLY SATURATING 97 98% ON ROOM AIR STATES HE FEELS VERY WEAK HE IS AWARE HE HAS A AN ACUTE ON CHRONIC KIDNEY INJURY, HYPONATREMIA, ANEMIA, WE WILL BE ADMITTED TO THE HOSPITAL. 1825/SPOKE WITH LYNETTE SOLERP HOSPITALIST AND REVIEWED EKG LABS CHEST X-RAY AND INTERVENTIONS FOR ACUTE KIDNEY INJURY HYPOXEMIA. AGREED TO ADMIT PATIENT Medical Decision Making MDM MDM: DIFFERENTIAL DIAGNOSIS: ACS/AMI/FLUID OVERLOAD/PNEUMONIA/BRONCHITIS/CHF/CHRONIC KIDNEY DISEASE/ELECTROLYTE IMBALANCE/SARS COVID RATIONALE: TESTS CONSIDERED AND ORDERED SECONDARY TO SHARED DECISION MAKING INCLUDE: LABS, ECG AND RADIOLOGY PREVIOUS OUTSIDE RECORDS REVIEWED: OLD ER VISITS. RISK OF COMPLICATION AND/OR MORBIDITY OR MORTALITY OF PATIENT MANAGEMENT: MILD MEDICATIONS-PER MEDICATION RECONCILIATION NEED FOR HOSPITALIZATION: PATIENT DOES MEET CRITERIA FOR HOSPITALIZATION. PATIENT WILL NEED BE ADMITTED FOR ACUTE ON CHRONIC KIDNEY INJURY DYSPNEA AND CARDIOLOGY CONSULTATION NEED FOR EMERGENCY MAJOR/MINOR SURGERY: NO THERE ARE NO SOCIAL CONCERNS WITH THIS PATIENT. PRESCRIPTION DRUG MANAGEMENT PRESCRIPTIONS WILL INCLUDE SYMPTOMATIC CARE PATIENT'S PRIOR EXTERNAL MEDICAL RECORDS FROM OTHER ER VISITS WERE REVIEWED BY ME INDICATED. PRIOR TESTING AND RESULTS FROM PREVIOUS VISITS WERE REVIEWED. PRIOR TESTS WERE TAKEN INTO ACCOUNT WITH MEDICAL DECISION MAKING AND RESOURCE UTILIZATION, INDEPENDENT HISTORIAN/HISTORIANS WERE USED TO OBTAIN COMPLETE MEDICAL HISTORY. I INDEPENDENTLY INTERPRETED THE TEST THAT WERE PERFORMED, RESULTS WERE REVIEWED BY ME AND CONSIDERED FINDINGS ON RADIOLOGY IF ORDERED. MEDICAL MANAGEMENT AND EXAMINATION INTERPRETATION DISCUSSIONS WERE HAD BY ME WITH OTHER QUALIFIED HEALTHCARE PROFESSIONALS INDICATED FOR THE PATIENT'S CARE. DX & DISP Disposition: Inpatient Decision to Admit Time: 17:07 Departure Impression: Primary Impression: Exertional dyspnea Additional Impressions: [id number] kidney injury, Hyponatremia, Hypochloremia, Anemia of chronic renal failure, stage 3a, Hypoxemia Condition: Stable Scripts Oseltamivir Phosphate (Tamiflu) 75 Mg Cap 1 CAP PO BID for 5 Days, #10 CAP 0 Refills Prov: PAMELLA WELSH 01/15/25 Levofloxacin (Levaquin 750Mg Tabs) 750 Mg Tablet 1 TAB PO DAILY for 5 Days, #5 TAB 0 Refills Prov: PAMELLA WELSH 01/15/25 Referrals: MICHAEL JORGE DO (PCP) Time of Disposition: 17:08 I have reviewed the case, and I agree with, Diagnosis and Plan I performed a substantive portion of the visit. I have reviewed and personally made and approve the management plan that is documented in the notes by myself with JACKI/resident. I acknowledged full responsibility for the patient's management plan. ELIDA RODRIGUEZ NP Jan 14, 2025 13:49 NA FOWLER DO Jan 17, 2025 07:13
[2025-01-14 14:06] LABS: BASOPHILS # (AUTO) 0.04 K/uL (0.00-0.20); BASOPHILS % (AUTO) 0.5 % (0.0-5.0); EOSINOPHILS # (AUTO) 0.14 K/uL (0.00-0.70); EOSINOPHILS % (AUTO) 1.8 % (0.0-8.0); HEMATOCRIT 35.1 % (42-54); IMMATURE GRANULOCYTE ABSOLUTE 0.04 K/uL (0-1); LYMPHOCYTES # (AUTO) 1.1 K/uL (1.0-4.8); LYMPHOCYTES % (AUTO) 13.9 % (21.0-51.0); MONOCYTES # (AUTO) 0.7 K/uL (0.1-1.0); MONOCYTES % (AUTO) 9.6 % (3.0-13.0); NEUTROPHILS # (AUTO) 5.7 K/uL (1.8-7.7); NEUTROPHILS % (AUTO) 73.7 % (40.0-77.0); PLATELET COUNT (AUTO) 90 K/uL (130-400); RED BLOOD CELL COUNT(AUTO) 3.62 MIL/uL (4.50-6.20); RED CELL DISTRIBUTION WIDTH 12.4 % (11.0-15.5); WHITE BLOOD COUNT (AUTO) 7.7 K/uL (4.8-10.8)
[2025-01-14 14:16] LABS: CREATININE 1.2 mg/dL (0.5-1.3); POTASSIUM 4.3 mmol/L (3.5-5.1)
--- NOTE | 2025-01-14 14:26 | EKG ---
[facility] Test Date: 2025-01-14 Test Time: 13:39:11 Pat Name: CHRIS HOANG Department: [facility] Room: Gender: M Cobbler Sole: [id number] : 1945 Requested By: NA FOWLER Order Number: [id number] Reading MD: David Norman Measurements Intervals [place] Rate: 50 P: 0 [place]: 73 QRS: -69 QRSD: 98 T: 91 QT: 531 QTc: 485 Interpretive Statements Sinus rhythm Left anterior fascicular block Compared to ECG 03/31/2024 09:16:40 Left anterior fascicular block now present First degree AV block no longer present Electronically Signed On 01-14-2025 17:31:09 CDT by David Norman Please click the below link to view image of tracing.
[2025-01-14 14:29] LABS: B-TYPE NATRIURETIC PEPTIDE 279 pg/mL (0-100)
--- NOTE | 2025-01-14 14:54 | HMCIMG ---
PORTABLE CHEST RADIOGRAPH INDICATION: CHEST PAIN COMPARISON: 10/30/2024 CTA chest FINDINGS: Heart size is normal. The pulmonary vascularity and cynthia appear normal. No evidence for consolidation. Both costophrenic angles appear nominally blunted, but pleural thickening is favored over fluid, and bibasilar lung linear scarring noted. No pneumothorax detected. IMPRESSION: No radiographic evidence for any acute cardiopulmonary process.
[2025-01-14] MEDS: ALBUTEROL 0.083% 2.5 MG/3 ML INH IH ONE (17:21)
[2025-01-14 17:25] VITALS: PULSE 47; RESP 20
--- NOTE | 2025-01-14 17:25 | NUR ---
PLACED 20G ON RIGHT ANTECUBITAL.
[2025-01-14 17:30] LABS: ABG BASE EXCESS -1.2 mmol/L (-2.0-3.0); ABG HCO3 21.5 mmol/L (21.0-28.0); ABG OXYGEN SATURATION 94.9 % (94.0-98.0); ABG PCO2 31 mmHg (35-48); VENT MODE, BG RA (ROOM AIR)
[2025-01-14 17:36] LABS: ADD UA MICROSCOPIC NO; APPEARANCE,URINE CLEAR (CLEAR); BILIRUBIN,URINE NEGATIVE (NEGATIVE); COLOR,URINE LIGHT-YELLOW (YELLOW); GLUCOSE, URINE (UA) NEGATIVE (NEGATIVE); KETONES,URINE NEGATIVE (NEGATIVE); LEUKOCYTE ESTERASE ,URINE NEGATIVE Leu/uL (NEGATIVE); NITRATE,URINE NEGATIVE (NEGATIVE); OCCULT BLOOD,URINE NEGATIVE (NEGATIVE); PH,URINE 5.5 (5.0-8.0); PROTEIN,URINE NEGATIVE (NEGATIVE); UROBILINOGEN,URINE 0.2 mg/dL (0.2-1.0)
[2025-01-14] MEDS ORDERED: AMIO200T68 PO (17:57)
[2025-01-14] MEDS ORDERED: LEVO5TAB13 PO (17:57)
[2025-01-14] MEDS ORDERED: FURO20TA4 PO (17:57)
[2025-01-14] MEDS ORDERED: RIVA20TA PO (17:57)
--- NOTE | 2025-01-14 17:57 | NUR ---
MEDICATIONS REVIEWED AND PLACED IN SYSTEM; PENDING TO BE RECONSILED BY PHYSICIAN.
[2025-01-14] MEDS: furoSEMIDE 40MG VIAL IV ONE (18:25)
--- NOTE | 2025-01-14 19:55 | HP ---
[facility] HISTORY & PHYSICAL Date Patient Seen: Jan 14, 2025 Time of Visit: 19:55 Supervising Physician: Dr. Lam Primary Care Physician: MICHAEL JORGE DO Outpatient Specialists: Dr. Delacruz, boilers and pressure vessels inspector, Dr. Lambert Inpatient Consults: Dr. 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 Hope is an 79-year-old male with a history of CHF, CKD, coronary artery disease, vertigo who presented to ED for evaluation of general body weakness and shortness of breath on exertion for at least 7-10 days. The patient reported that on he went to an urgent care for SOB and was told he was in congestive heart failure and was administer Lasix, and was prescribed Lasix for five days. He continued not feeling well therefore he followed up with his PCP on Wednesday who told him everything looked fine" and to continue the Lasix. He did continue taking the Lasix but failed no improvement of the shortness of breath and the general body weakness which prompted him to come to the ED today. The patient reports edema to bilateral lower extremities L>R. The patient denied any fever, chills, nausea, or vomiting. Labs review. BNP 279, troponin 29. COVID negative. EKG: Sinus bradycardia, h eart rate 50 beats per minute. Chest x-ray: No radiographic evidence of any acute cardiopulmonary process. In ED patient was administered Lasix 40 mg IV and albuterol nebulizer treatment, with improvement of work of breathing. ED provider request patient be admitted with the diagnosis of exertional dyspnea, acute on chronic kidney injury, hyponatremia, hypochloremia, anemia of chronic renal failure, stage three and hypoxemia. I assessed the patient in room number ED 18. The patient appeared comfortable, breathing was even, unlabored, in no distress. The patient stated his breathing has improved. He states that the main reason that he is here is for severe left shoulder pain. The reported early to day he could not even order picker/assembler his arm because he was in severe pain. The patient reports that he takes Lasix 20 mg IV daily and drinks lots of water. The patient reports that on Wednesday he has a cardioversion and tomorrow he had his pending preop. I informed inpatient of labs, diagnostics, and plan of care. They verbalized understanding and are in agreement with the plan. Plan and assessment are listed below. PAST MEDICAL HX: see above PAST SURGICAL HX: Cardioversion, Appendectomy, bilateral knee replacement, back surgery, abdominal hernia surgery. SOCIAL HISTORY: No tobacco, ETOH, or illicit drug use Coded Allergies: No Known Drug Allergies (Unverified Allergy, Unknown, 02/16/24) REVIEW OF SYSTEMS: 12 point ROS reviewed with patient. Pertinent positives mentioned above. Otherwise negative. PHYSICAL EXAM: GENERAL: Alert, weak, awake oriented x 3 HEENT: EOMI, Sclera non icteric, moist mucosa NECK: Supple, no JVD, trachea midline LUNGS: Clear breath sounds bilaterally. No wheezes HEART: Regular rate and rhythm. Normal S1 and S2, without murmurs ABD: Abdomen soft, nontender. Bowel sounds present EXT: No clubbing cyanosis or edema NEURO: Alert and oriented X3, follows commands Vital Signs (last 8hr) Date Time Temp Pulse Resp B/P (MAP) Pulse Ox O2 Delivery O2 Flow Rate FiO2 01/14/25 17:40 98.2 47 20 128/53 96 Room Air* 0 21 01/14/25 17:25 47 20 01/14/25 13:28 97.3 52 18 141/66 99 Room Air 0 LABS: Hematology Labs: Test 01/14/25 13:58 Range/Units White Blood Count 7.7 4.8-10.8 K/uL Red Blood Count 3.62 L 4.50-6.20 MIL/uL Hemoglobin 11.6 L 14.0-18.0 g/dL Hematocrit 35.1 L 42-54 % Mean Corpuscular Volume 97.0 79-99 fL Mean Corpuscular Hemoglobin 32.0 27.0-33.0 pg Mean Corpuscular Hemoglobin Concent 33.0 32.0-36.0 g/dL Red Cell Distribution Width 12.4 11.0-15.5 % Platelet Count 90 L 130-400 K/uL Mean Platelet Volume 12.7 H 7.5-10.5 fL Immature Granulocyte % (Auto) 0.5 0-1 % Neutrophils (%) (Auto) 73.7 40.0-77.0 % Lymphocytes (%) (Auto) 13.9 L 21.0-51.0 % Monocytes (%) (Auto) 9.6 3.0-13.0 % Eosinophils (%) (Auto) 1.8 0.0-8.0 % Basophils (%) (Auto) 0.5 0.0-5.0 % Neutrophils # (Auto) 5.7 1.8-7.7 K/uL Lymphocytes # (Auto) 1.1 1.0-4.8 K/uL Monocytes # (Auto) 0.7 0.1-1.0 K/uL Eosinophils # (Auto) 0.14 0.00-0.70 K/uL Basophils # (Auto) 0.04 0.00-0.20 K/uL Absolute Immature Granulocyte (auto 0.04 0-1 K/uL Nucleated Red Blood Cells 0.0 0.0-0.19 % Chemistry Labs: Test 01/14/25 13:58 Range/Units Sodium Level 135 L 136-145 mmol/L Potassium Level 4.3 3.5-5.1 mmol/L Chloride Level 100 L 101-111 mmol/L Carbon Dioxide Level 30 21-32 mmol/L Blood Urea Nitrogen 23 H 7-18 mg/dL Creatinine 1.2 0.5-1.3 mg/dL Glomerular Filtration Rate Calc 61 >90 mL/min Random Glucose 100 70-105 mg/dL Total Calcium 8.8 8.5-10.1 mg/dL Total Creatine Kinase 89 21-232 U/L Troponin I High Sensitivity 29 4-75 ng/L B-Type Natriuretic Peptide 279 H 0-100 pg/mL DIAGNOSTICS / RADIOLOGY RESULTS: [ ] PLAN -Admit to medical floor with continuous telemetry monitoring. -Troponin levels and EKG series. -Cardiology consult in the am. -2D echo in a.m. with heart clinic to read. -PRN medications for pain management, fever, N/V, constipation, hypertension. -Oxygen supplement as needed to maintain oxygen levels equal to or greater than 92% -albuterol, Atrovent, Pulmicort nebulizer treatments scheduled. -RT to provide incentive spirometer and education on use. -Nitroglycerin sublingual as needed chest pain -Aspirin 81 mg p.o. daily. -Atorvastatin 40 mg PO daily. - Reconcile home medications amiodarone, Lasix, levocetirizine, Xarelto, metoprolol, hydrocodone, vitamin-D, vitamin B12, multivitamins. -Strict I&O. -Fluid restriction 1,200 mls in 24 hours. -Education on fluid restriction. -Daily weight. -Blood pressure checks every 4 hours and as needed. -Glucometer checks before meals and at bedtime with insulin regular sliding scale. -Monitor renal and liver function, monitor electrolytes and treat accordingly. -AM labs: CBC, BMP, trop, mag, phos, A1C, TSH, DDIMER -DVT and GI prophylaxis: Xarelto and Pepcid. -Pending shoulder x-ray, CT of chest w/o contrast. NEURO: Minimize central acting medications as possible. Maintain fall precautions, adequate lighting during the day PULMONARY: Supplemental 02 as needed. Maintain aspiration precautions at all times CARDIOVASCULAR: Follow hemodynamics. Vital signs per facility protocol GI & NUTRITION: Continue with nutritional support. Continue stool softeners and laxatives as needed. KIDNEYS & ELECTROLYTES: Strict monitoring of intake, output and overall fluid balance. Avoid nephrotoxic medications to the extent possible. Medications to be dosed according to renal function. Monitor electrolytes and replace as needed ENDOCRINE: Maintain blood glucose between 100-180 at all times. Hypoglycemia protocol in place INFECTIOUS DISEASE: Trend temperature, WBC and procalcitonin level Follow cultures, deescalate antibiotics as soon as possible. Panculture if new onset fever ONCOLOGY/HEMATOLOGY/COAGULATION: Monitor for s/s of bleeding Monitor hemoglobin, coagulation studies as needed SKIN: Pressure ulcer prevention per facility protocol Specialty mattress ORTHO/REHAB: Continue PT/OT Prophylaxis: Continue GI and DVT prophylaxis Code Status: Full Resuscitation Disposition: OLLIE THORNE DEVELOPMENTAL MATHEMATICS INSTRUCTOR Jan 14, 2025 19:55
[2025-01-14] MEDS ORDERED: doCUSate SODIUM 100 MG CAP PO PRN (20:00)
[2025-01-14] MEDS ORDERED: LACTULOSE 20 GM/30 ML UDCUP PO PRN (20:00)
[2025-01-14] MEDS ORDERED: LAbetaLOL 20MG SYG IV PRN (20:00)
[2025-01-14] MEDS ORDERED: TEMAZepam 15 MG CAPSULE PO PRN (20:00)
[2025-01-14] MEDS ORDERED: ondanSETRON 4MG INJ IVP PRN (20:00)
[2025-01-14] MEDS ORDERED: acetaMINOPHEN 650 MG SUPPOSITORY RC PRN (20:00)
[2025-01-14 20:47] VITALS: PULSE 96; RESP 18; O2SAT 96
[2025-01-14] MEDS: INSULIN humuLIN R 100 UNIT/ML 3ML SQ SCH (21:00)
[2025-01-14 23:51] VITALS: PULSE 49; RESP 18
[2025-01-15] VITALS (7 sets, daily range): BP systolic 113–130; BP diastolic 54–57; PULSE 47–57; RESP 16–18; TEMP 97.6–98.9; O2SAT 97–98
[2025-01-15] MEDS: ALBUTEROL 0.083% 2.5 MG/3 ML INH IH SCH (00:02)
[2025-01-15] MEDS: IpraTROPium 0.5 MG/2.5 ML INH IH SCH (00:02)
[2025-01-15] MEDS ORDERED: IBUPROFEN PO PRN (02:30)
[2025-01-15] MEDS ORDERED: HYDROCODONE PO PRN (02:30)
--- NOTE | 2025-01-15 02:45 | NUR ---
[facility] REPORTED TO OLLIE CHINCHILLA NP NO NEW ORDER AT THIS TIME, SAID SHE ALREADY PUT ORDERS FOR CT CHEST W/O CONTRAST, US VENOUS DOPPLER BLE NM PE
--- NOTE | 2025-01-15 06:34 | EKG ---
[facility] Test Date: 2025-01-15 Test Time: 06:32:40 Pat Name: CHRIS HOANG Department: ED[facility]IP Room: ED 18 Gender: M Scarf And Anneal Operator: [id number] : 1945 Requested By: OLLIE CHINCHILLA Order Number: [id number] Reading MD: Jorge Bronw Measurements Intervals Warrior Rate: 48 P: 48 DC: 183 QRS: 82 QRSD: 99 T: -32 QT: 589 QTc: 529 Interpretive Statements Sinus bradycardia Prolonged QT interval Compared to ECG 01/14/2025 13:39:11 Prolonged QT interval now present Sinus rhythm no longer present Left anterior fascicular block no longer present Electronically Signed On 01-16-2025 13:35:39 CDT by Jorge Brown Please click the below link to view image of tracing.
[2025-01-15] MEDS: BUDESONIDE 0.5 MG/2 ML INH IH SCH (07:13)
[2025-01-15] MEDS: acetaMINOPHEN 325 MG TAB PO PRN (07:15)
[2025-01-15 07:17] LABS: HEMATOCRIT 29.3 % (42-54); MEAN CORPUSCULAR HEMOGLOBIN 31.5 pg (27.0-33.0); MEAN CORPUSCULAR HGB CONC 34.1 g/dL (32.0-36.0); MEAN CORPUSCULAR VOLUME 92.4 fL (79-99); RED BLOOD CELL COUNT(AUTO) 3.17 MIL/uL (4.50-6.20); RED CELL DISTRIBUTION WIDTH 12.2 % (11.0-15.5); WHITE BLOOD COUNT (AUTO) 5.9 K/uL (4.8-10.8)
[2025-01-15 07:26] LABS: INFLUENZA TYPE A Negative For Type A (NEGATIVE)
[2025-01-15 07:39] LABS: INFLUENZA TYPE B Positive For Type B (NEGATIVE)
[2025-01-15 07:39] LABS: CREATININE 1.1 mg/dL (0.5-1.3); MAGNESIUM 1.9 mg/dL (1.80-2.40); POTASSIUM 3.2 mmol/L (3.5-5.1); THYROID STIMULATING HORMONE 8.42 uIU/mL (0.36-3.74)
--- NOTE | 2025-01-15 08:57 | HMCIMG ---
CT CHEST W/O CONTRAST HISTORY: Septicemia COMPARISON: None TECHNIQUE: Multiple sequential axial images of the chest were obtained from the thoracic inlet through upper abdomen. Patient was not given contrast through intravenous route. FINDINGS: Left lower lung pulmonary infiltrates are seen. Bilateral shoulder joint effusion is seen. Small bilateral pleural effusions are seen. There is no evidence of pneumothorax. There are normal size mediastinal and hilar lymph nodes. The heart is not enlarged. Degenerative changes of the thoracolumbar spine are present. There is no evidence of adrenal nodule. Compression fracture is seen worse at L2 with 30% loss of height. There is levoscoliosis. IMPRESSION: 1. Left lower lung pulmonary infiltrates. Small bilateral pleural effusions with compressive atelectasis. CT was performed with one or more following dose reduction techniques: automated exposure control, adjustment of the mA and kv according to patient's size, or use of a iterative reconstruction technique.
[2025-01-15] MEDS: [UNRECOGNIZED DRUG - OTHER] PO SCH (09:00)
[2025-01-15] MEDS: metOPROLol sucCINATE 50 MG TAB.SR.24H PO SCH (09:00)
[2025-01-15] MEDS: LYCOPEN PO SCH (09:00)
[2025-01-15] MEDS: LEVOCETIRIZINE DIHYDROCHLORIDE PO SCH (09:00)
[2025-01-15] MEDS: MULTIVIT MIN PO SCH (09:00)
[2025-01-15] MEDS: AMIOdarone 200 MG TABLET PO SCH (09:00)
[2025-01-15] MEDS: furoSEMIDE 20 MG TABLET PO SCH (09:00)
[2025-01-15] MEDS: LUTEIN PO SCH (09:00)
[2025-01-15] MEDS: Cholecalciferol (Vitamin D3) (Vitamin D3) 25 MCG PO SCH (09:00)
[2025-01-15] MEDS: RIVAROXABAN 20 MG TABLET PO SCH (09:53)
[2025-01-15] MEDS: CYANOCOBALAMIN (VITAMIN B-12) 1,000 MCG TABLET PO SCH (09:54)
[2025-01-15] MEDS: FAMOTIDINE 20MG VIAL IV SCH (09:57)
--- NOTE | 2025-01-15 10:07 | PN ---
[facility] PROGRESS NOTE Date Patient Seen: Jan 15, 2025 Time of Visit: 10:07 Supervising Physician: [ ] Primary Care Physician: MICHAEL JORGE DO Outpatient Specialists: Dr. Delacruz, planning specialist, Dr. Lambert Inpatient Consults: Dr. Brown PROBLEM LIST: CHF with acute exacerbation, POA Acute hypoxemic respiratory failure, POA Acute on chronic kidney injury, POA (GFR on 10/16/2024 was 89, baseline GFR high 80s) Acute on chronic renal failure stage 2, POA GFR 61 Hyponatremia/hypochloremia Anemia of chronic disease Thrombocytopenia Hyponatremia/hypochloremia INTERVAL HISTORY: [ ] REVIEW OF SYSTEMS: 12 point ROS reviewed with patient. Pertinent positives mentioned above. Otherwise negative. PHYSICAL EXAM: GENERAL: Alert, weak, awake oriented x 3 HEENT: EOMI, Sclera non icteric, moist mucosa NECK: Supple, no JVD, trachea midline LUNGS: Clear breath sounds bilaterally. No wheezes HEART: Regular rate and rhythm. Normal S1 and S2, without murmurs ABD: Abdomen soft, nontender. Bowel sounds present EXT: No clubbing cyanosis or edema NEURO: Alert and oriented X3, follows commands Vital Signs (last 8hr) Date Time Temp Pulse Resp B/P (MAP) Pulse Ox O2 Delivery O2 Flow Rate FiO2 01/15/25 07:14 47 18 N/A Room Air 21 01/15/25 07:13 47 18 01/15/25 06:29 98.1 48 14 121/52 98 Room Air* 0 21 LABS: Hematology Labs: Test 01/15/25 06:59 01/14/25 13:58 Range/Units White Blood Count 5.9 4.8-10.8 K/uL Red Blood Count 3.17 L 4.50-6.20 MIL/uL Hemoglobin 10.0 L 14.0-18.0 g/dL Hematocrit 29.3 L 42-54 % Mean Corpuscular Volume 92.4 79-99 fL Mean Corpuscular Hemoglobin 31.5 27.0-33.0 pg Mean Corpuscular Hemoglobin Concent 34.1 32.0-36.0 g/dL Red Cell Distribution Width 12.2 11.0-15.5 % Platelet Count 77 L 130-400 K/uL Mean Platelet Volume 13.1 H 7.5-10.5 fL Nucleated Red Blood Cells 0.0 0.0-0.19 % Immature Granulocyte % (Auto) 0.5 0-1 % Neutrophils (%) (Auto) 73.7 40.0-77.0 % Lymphocytes (%) (Auto) 13.9 L 21.0-51.0 % Monocytes (%) (Auto) 9.6 3.0-13.0 % Eosinophils (%) (Auto) 1.8 0.0-8.0 % Basophils (%) (Auto) 0.5 0.0-5.0 % Neutrophils # (Auto) 5.7 1.8-7.7 K/uL Lymphocytes # (Auto) 1.1 1.0-4.8 K/uL Monocytes # (Auto) 0.7 0.1-1.0 K/uL Eosinophils # (Auto) 0.14 0.00-0.70 K/uL Basophils # (Auto) 0.04 0.00-0.20 K/uL Absolute Immature Granulocyte (auto 0.04 0-1 K/uL Chemistry Labs: Test 01/15/25 06:59 01/15/25 02:33 01/14/25 23:10 01/14/25 13:58 Range/Units Sodium Level 137 136-145 mmol/L Potassium Level 3.2 L 3.5-5.1 mmol/L Chloride Level 103 101-111 mmol/L Carbon Dioxide Level 28 21-32 mmol/L Blood Urea Nitrogen 19 H 7-18 mg/dL Creatinine 1.1 0.5-1.3 mg/dL Glomerular Filtration Rate Calc 67 >90 mL/min Random Glucose 82 70-105 mg/dL Total Calcium 8.8 8.5-10.1 mg/dL Phosphorus Level 4.0 2.5-4.9 mg/dL Magnesium Level 1.90 1.80-2.40 mg/dL Thyroid Stimulating Hormone (TSH) 8.42 H 0.36-3.74 uIU/mL Hemoglobin A1c 5.0 4.0-6.0 % Estimated Average Glucose (eAG) 97 70-126 mg/dL Troponin I High Sensitivity 36 4-75 ng/L Whole Blood Glucose 85 70-110 MG/DL Total Creatine Kinase 89 21-232 U/L B-Type Natriuretic Peptide 279 H 0-100 pg/mL Coagulation Labs: Test 01/15/25 02:33 Range/Units D-Dimer Quantitative (PE/DVT) 914 *H 0-500 ng/mL DIAGNOSTICS / RADIOLOGY RESULTS: [ ] PLAN -Admit to medical floor with continuous telemetry monitoring. -Troponin levels and EKG series. -Cardiology consult in the am. -2D echo in a.m. with heart clinic to read. -PRN medications for pain management, fever, N/V, constipation, hypertension. -Oxygen supplement as needed to maintain oxygen levels equal to or greater than 92% -albuterol, Atrovent, Pulmicort nebulizer treatments scheduled. -RT to provide incentive spirometer and education on use. -Nitroglycerin sublingual as needed chest pain -Aspirin 81 mg p.o. daily. -Atorvastatin 40 mg PO daily. - Reconcile home medications amiodarone, Lasix, levocetirizine, Xarelto, metoprolol, hydrocodone, vitamin-D, vitamin B12, multivitamins. -Strict I&O. -Fluid restriction 1,200 mls in 24 hours. -Education on fluid restriction. -Daily weight. -Blood pressure checks every 4 hours and as needed. -Glucometer checks before meals and at bedtime with insulin regular sliding scale. -Monitor renal and liver function, monitor electrolytes and treat accordingly. -AM labs: CBC, BMP, trop, mag, phos, A1C, TSH, DDIMER -DVT and GI prophylaxis: Xarelto and Pepcid. -Pending shoulder x-ray, CT of chest w/o contrast. NEURO: Minimize central acting medications as possible. Maintain fall precautions, adequate lighting during the day PULMONARY: Supplemental 02 as needed. Maintain aspiration precautions at all times CARDIOVASCULAR: Follow hemodynamics. Vital signs per facility protocol GI & NUTRITION: Continue with nutritional support. Continue stool softeners and laxatives as needed. KIDNEYS & ELECTROLYTES: Strict monitoring of intake, output and overall fluid balance. Avoid nephrotoxic medications to the extent possible. Medications to be dosed according to renal function. Monitor electrolytes and replace as needed ENDOCRINE: Maintain blood glucose between 100-180 at all times. Hypoglycemia protocol in place INFECTIOUS DISEASE: Trend temperature, WBC and procalcitonin level Follow cultures, deescalate antibiotics as soon as possible. Panculture if new onset fever ONCOLOGY/HEMATOLOGY/COAGULATION: Monitor for s/s of bleeding Monitor hemoglobin, coagulation studies as needed SKIN: Pressure ulcer prevention per facility protocol Specialty mattress ORTHO/REHAB: Continue PT/OT Prophylaxis: Continue GI and DVT prophylaxis Code Status: Full Resuscitation Disposition: TBD PAMELLA WELSH Jan 15, 2025 10:07
--- NOTE | 2025-01-15 10:33 | HMCIMG ---
US VENOUS DOPPLER BILATERAL HISTORY: Shortness of breath, chest pain COMPARISON: None TECHNIQUE: Bilateral lower extremity venous Doppler ultrasound study was performed. FINDINGS: The common femoral, femoral, popliteal, and posterior tibial veins are visualized. Normal flow with augmentation and compressibilities are demonstrated. The greater saphenous veins are also seen and grossly patent. IMPRESSION: 1. No evidence of deep venous thrombosis is seen.
--- NOTE | 2025-01-15 10:51 | NUR ---
DCP: HOME sw met with pt's Leelee Hope [phone]. Per , they have been over 30 years. They [address] from each other and currently he is staying at her house, because he requires assist with ADLS, and IADLS. states he can walk with a standing walker, but she has to assist with bathing dressing grooming toileting, pt has no teeth so he requires assist with preparing food so that it is finely chopped and tender. Pt gets meal on wheels, has a walker, hospital bed, shower chair, bsc, grab bars and inhalers. states she will care for pt at her home as long as He is ambulatory, once he becomes bed bound, he will need placement. At this time, she will take pt home with her, but if he declines more during stay, he will need SNF. CM to follow and assist as needed. Addendum: 01/15/25 at 1102 by TYSON THOMPSON Amended: Links added.
[2025-01-15] MEDS: CEFTRIAXONE 2GM VIAL IVPB SCH (12:33)
--- NOTE | 2025-01-15 13:05 | HMCIMG ---
SHOULDER COMP 2+VWS LT HISTORY: Left shoulder pain COMPARISON: None TECHNIQUE: 2 images of left shoulder were obtained. FINDINGS: There is no acute displaced fracture or dislocation. Degenerative changes are seen. IMPRESSION: 1. Findings as described above.
[2025-01-15] MEDS ORDERED: LEVO750T68 PO (15:24)
[2025-01-15] MEDS ORDERED: OSEL75 PO (15:24)
--- NOTE | 2025-01-15 17:31 | HMCSR ---
APPROVED REPORT EXAM: Two-dimensional and M-mode echocardiogram with Doppler and color Doppler. INDICATION ICD: Exertional dyspnea 2D Dimensions RVDd3.8 cmLVEF(%)75.1 (>50%)LVED Vol(simp.)122.0 mL IVSd1.2 (0.7-1.1cm)FS(%)44 %LVES Vol(simp.)42.0 mL LVDd5.0 (3.8-5.6cm)LA (2D)2.9 (1.6-4.0cm)LVEF(%, simp.)66 % PWd1.0 (0.7-1.1cm)Ao Root(2D)3.7 (2.0-3.7cm)LA ESV INDEX (BP)56.98 mL/m2 IVSs1.4 cmLVOT diam2.3 (1.8-2.4cm) LVDs2.8 (2.5-4.0cm)IVC diam2.2 cm PWs2.0 cm Deformation Strain Apical 4-18.9 % Apical 2-19.8 % Apical 3-18.7 % Global Strain-19.1 % M-Mode Dimensions EPSS0.6 cm LA (MM)3.4 (1.6-4.0cm) Ao Root(MM)3.6 (2.0-3.7cm) Aortic Valve AoV Vmax1.8 m/Jing Peak GR12.7 mmHgLVOT Vmax1.1 m/s AoV VTI0.3 mAo Mean GR6.8 mmHgLVOT VTI0.25 m MAXIM (VMAX)3.12 cm2Al P1/2T488 msAVA (VTI) 3.1 cm2 Mitral Valve MV E Vmax86.6 cm/sDECEL Louv147 ms MV A Vmax20.0 cm/sP 1/2 T56 ms E/A ratio4.3MVA (PHT)3.9 cm2 TDI E/E' Vfuaij72.9E/E' Zqkfiqb34.4 Medial E' Peak V4.59 cm/sLateral E' Peak V6.47 cm/s Pulmonary Valve PV Vmax1.0 m/sPV Mean GR2.2 mmHg PV Peak GR4.0 mmHg Tricuspid Valve TR Vmax2.5 m/sRAP (EST) 15 wxSfMYZD10.6 mmHg TR Peak GR25.6 mmHg Left Ventricle The left ventricle is normal size. Left ventricular trabeculation noted. GLS -19.0%. There is normal LV segmental wall motion. Mild concentric left ventricular hypertrophy. LVEF is 65-70%. 3D volume EF 67%. The left ventricular diastolic function is normal. Right Ventricle The right ventricle is normal size. The right ventricular systolic function is normal. Atria The left atrium is severely dilated. LASVI 57mL/m. The right atrium is severely dilated. Aortic Valve The aortic valve is normal in structure. Moderate aortic regurgitation is present. There is no aortic valvular stenosis. Mitral Valve The mitral valve is mildly thickened. Posterior mitral valve leaflet appears small in length size. Th ere is mild mitral valve regurgitation noted. There is no mitral valve stenosis. Tricuspid Valve The tricuspid valve is normal in structure. There is mild tricuspid valve regurgitation noted. Pulmonic Valve The pulmonary valve is normal in structure. There is trace of pulmonic valvular regurgitation. Great Vessels The aortic root is normal in size. IVC is dilated and collapses <50% with inspiration. Pericardium There is a trivial pericardial effusion. Other Information Quality : Adequate Conclusion Mild concentric left ventricular hypertrophy. LVEF is 65-70%. 3D volume EF 67%. GLS -19.0%. There is normal LV segmental wall motion. The left atrium is severely dilated. LASVI 57mL/m. The right atrium is severely dilated. Moderate aortic regurgitation is present. There is mild mitral valve regurgitation noted.
[2025-01-15] MEDS ORDERED: DOXYCYCLINE HYCLATE 100 MG TABLET PO SCH (21:00)
[2025-01-15] MEDS ORDERED: OSELTAMIVIR PHOSPHATE 75 MG CAP PO SCH (21:00)
--- NOTE | 2025-01-15 21:58 | DS ---
[facility] DISCHARGE SUMMARY Date Patient Seen: Jan 15, 2025 Time of Visit: 21:56 Supervising Physician: Dr. Tommy Lam Primary Care Physician: MICHAEL JORGE DO Outpatient Specialists: Dr. Delacruz, sow farm barn technician, Dr. Lambert Inpatient Consults: Dr. Brown [facility] COURSE: HPI (per admitting provider) Mr. Hope is an 79-year-old male with a history of CHF, CKD, coronary artery disease, vertigo who presented to ED for evaluation of general body weakness and shortness of breath on exertion for at least 7-10 days. The patient reported that on he went to an urgent care for SOB and was told he was in congestive heart failure and was administer Lasix, and was prescribed Lasix for five days. He continued not feeling well therefore he followed up with his PCP on Wednesday who told him everything looked fine" and to continue the Lasix. He did continue taking the Lasix but failed no improvement of the shortness of breath and the general body weakness which prompted him to come to the ED today. The patient reports edema to bilateral lower extremities L>R. The patient denied any fever, chills, nausea, or vomiting. Labs review. BNP 279, troponin 29. COVID negative. EKG: Sinus bradycardia, heart rate 50 beats per minute. Chest x-ray: No radiographic evidence of any acute cardiopulmonary process. In ED patient was administered Lasix 40 mg IV and albuterol nebulizer treatment, with improvement of work of breathing. ED provider request patient be admitted with the diagnosis of exertional dyspnea, acute on chronic kidney injury, hyponatremia, hypochloremia, anemia of chronic renal failure, stage three and hypoxemia. I assessed the patient in room number ED 18. The patient appeared comfortable, breathing was even, unlabored, in no distress. The patient stated his breathing has improved. He states that the main reason that he is here is for severe left shoulder pain. The reported early to day he could not even nut picker his arm because he was in severe pain. The patient reports that he takes Lasix 20 mg IV daily and drinks lots of water. The patient reports that on Wednesday he has a cardioversion and tomorrow he had his pending preop. I informed inpatient of labs, diagnostics, and plan of care. They verbalized understanding and are in agreement with the plan. Plan and assessment are listed below. The patient was treated for the following problems: Patient was responded well on this admission to antibiotic therapy, has remained on room air, patient was diuresed well as well as has been tolerating his diet with no reported events. Patient was being discharged today with Levaquin and Tamiflu for treatment of flu B and community-acquired pneumonia, patient has diuresed appropriately and recommended to continue on his home dose of Lasix. Recommended follow up with PCP in one week. ACTIVE PROBLEM LIST FOR THE HOSPITALIZATION: CHF with acute exacerbation, POA Acute hypoxemic respiratory failure, POA Acute on chronic kidney injury, POA (GFR on 10/16/2024 was 89, baseline GFR high 80s) Acute on chronic renal failure stage 2, POA GFR 61 Hyponatremia/hypochloremia CHRONIC PROBLEMS: continue previous management per PCP unless otherwise indicated Anemia of chronic disease Thrombocytopenia Hyponatremia/hypochloremia SALON SALES CONSULTANT FINDINGS/RECOMMENDATIONS: [ ] PROCEDURES: as mentioned above DISCHARGE MEDICATIONS: Pt hemodynamically stable and afebrile at time of discharge. PCP notified of patients admission, hospital course and discharge. PHYSICAL EXAM: GENERAL: Alert, weak, awake oriented x 3 HEENT: EOMI, Sclera non icteric, moist mucosa NECK: Supple, no JVD, trachea midline LUNGS: Clear breath sounds bilaterally. No wheezes HEART: Regular rate and rhythm. Normal S1 and S2, without murmurs ABD: Abdomen soft, nontender. Bowel sounds present EXT: No clubbing cyanosis or edema NEURO: Alert and oriented X3, follows commands FOLLOW-UP: Follow-up with PCP in 2-3 days RECOMMENDATIONS: See Discharge Instructions This case was seen and discussed with my supervising physician. More than 30 minutes spent on discharge process, including evaluation of the patient, discussion with nursing staff, medication reconciliation and follow-up appointments PAMELLA WELSH Jan 15, 2025 21:58
== END 2025-01-15 18:37 | disposition home or self-care (01) ==
LOC: EDH 12:46 → UNDOADMOB 12:47 → EDHIP 12:47
PROVIDERS: ADMIT Internal Medicine Critical Care Medicine; ATTEND Internal Medicine Critical Care Medicine
DX: I13.0 Hypertensive heart and chronic kidney disease with heart failure and stage 1 through stage 4 chronic kidney disease, or unspecified chronic kidney disease (principal); I50.9 Heart failure, unspecified; N18.31 Chronic kidney disease, stage 3a; D63.1 Anemia in chronic kidney disease; I25.10 Atherosclerotic heart disease of native coronary artery without angina pectoris; J96.01 Acute respiratory failure with hypoxia; N17.9 Acute kidney failure, unspecified; E87.1 Hypo-osmolality and hyponatremia; D69.6 Thrombocytopenia, unspecified; R60.0 Localized edema; M25.512 Pain in left shoulder; Z20.822 Contact with and (suspected) exposure to COVID-19; Z79.899 Other long term (current) drug therapy; Z96.653 Presence of artificial knee joint, bilateral; Z98.890 Other specified postprocedural states
CPT/HCPCS: 96375 ×2; 99285; 82550; 84484 ×2; 80048 ×2; 82803; 83880; 85025; 82948 ×2; 87426; 81003; 36415 ×2; 71045; 73030; 93005 ×2; 36600; 96365; 83036; 84443; 83735; 84100; 85027; 85378; 87804 ×2; 71250; 93306; 93356; 93970; 76376; 94640; G0378 ×23; J1938; J3490; J0696